=== PATIENT | female | born 1955 | race Caucasian/White ===

== ENCOUNTER 2017-01-02 11:40 | Emergency (ER) | payer OTHER ==
[2017-01-02 11:47] VITALS: BP 154/85
--- NOTE | 2017-01-02 12:18 | XRAY Preliminary Report ---
Exam: XR Foot 3 View RT IMPRESSION: Normal foot radiography. [facility] SITE ID: [id number]
--- NOTE | 2017-01-02 12:20 | XRAY Report ---
EXAM: RIGHT FOOT RADIOGRAPHY EXAM DATE: 01/02/2017 12:10 PM. CLINICAL HISTORY: Injury, pain, swelling. COMPARISON: None. TECHNIQUE: 3 views. FINDINGS: Bones: Normal. No fractures or bone lesions. Joints: Normal. No subluxations. Soft Tissues: Normal. No soft tissue swelling. IMPRESSION: Normal foot radiography. [facility] Referring Provider Line: [phone] SITE ID: [id number]
--- NOTE | 2017-01-02 12:44 | ED Physician Documentation ---
PD HPI LOWER EXT INJURY - Stated complaint Stated Complaint: RT FOOT INJ - Chief complaint Chief Complaint: Ext Problem - History obtained from History obtained from: Patient - History of Present Illness PD HPI LOW EXT INJURY LOCATION: Right, Foot Type of injury: Fall Timing - onset: Today Worsened by: Moving, Palpating, Other (weightbearing) Associated symptoms: No: Weakness, Numbness Similar symptoms before: Has not had sx before - Additional information Additional information: The patient is a 61-year-old female who slipped on a concrete retaining wall just prior to arrival, jamming her right foot into the dirt. She presents now with pain of the right foot, the pain is worse with weightbearing. She is status post right total knee replacement. She denies any other injuries. Review of Systems Nose: denies: Congestion Respiratory: denies: Dyspnea Skin: denies: Rash, Abrasion (s) Musculoskeletal: reports: Extremity pain (right foot). denies: Neck pain, Back pain Neurologic: denies: Focal weakness, Numbness PD PAST MEDICAL HISTORY - Past Medical History Respiratory: None Endocrine/Autoimmune: None - Past Surgical History Ortho: Knee replacement - Present Medications Home Medications: Ambulatory Orders Medication Instructions Recorded Confirmed HYDROcod/ACETAM 5/325 [[place] 5/325] 1 - 2 ea PO Q6H PRN #20 tablet 01/02/17 - Allergies Allergies/Adverse Reactions: Allergies Allergy/AdvReac Type Severity Reaction Status Date / Time NSAIDS (Non-Steroidal Allergy Hives Verified 01/02/17 11:47 Anti-Inflamma - Social History Additional Social History: Visiting here from [place]. PD ED PE NORMAL - Vitals Vital signs reviewed: Yes (mild hypertension) - General General: Alert and oriented X 3, Well developed/nourished - HEENT HEENT: Atraumatic - Neck Neck: No bony TTP - Respiratory Respiratory: No respiratory distress - Back Back: No spinal TTP - Derm Derm: No rash - Extremities Extremities: No edema, No calf tenderness / cord, Other (There is tenderness to palpation over the mid foot, more dorsally than on the plantar aspect. There is minimal swelling, no ecchymosis, and no break in the integument. There is no tenderness to palpation over the medial malleolus or lateral malleolus, or fifth metatarsal base. Distal neurovascular is intact.) - Neuro Neuro: Alert and oriented X 3, No motor deficit, No sensory deficit Results - Vitals Vitals: Oxygen O2 Source Room air - Rads (name of study) Right foot Radiology: Prelim report reviewed, EMP read contemporaneously, See rad report ( Normal right foot radiography.) PD MEDICAL DECISION MAKING - ED course Complexity details: reviewed results, re-evaluated patient, considered differential, d/w patient ED course: The patient's presentation is significant for sprain of the right foot. X-ray reveals no evidence of fracture or dislocation. Treatment in the emergency department included application of a postop shoe, and crutches were dispensed. She is being discharged with prescription for Vicodin, 20 tablets. 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 Departure - Departure Disposition: 01 Home, Self Care Clinical Impression: Sprain of right foot Qualifiers: Encounter type: initial encounter Qualified Code(s): S93.601A - Unspecified sprain of right foot, initial encounter Condition: Stable Instructions: ED Sprain Foot Prescriptions: HYDROcod/ACETAM 5/325 [[place] 5/325] 1 - 2 ea PO Q6H PRN #20 tablet PRN Reason: Pain Comments: Keep your right foot elevated as much the time as possible. Apply icepack to your right foot intermittently for the next 3 days. Use the postop shoe, and crutches as needed to aid with ambulation. You can use ibuprofen, up to 800 mg 3 times daily if needed for pain. You can also use Vicodin as prescribed if needed for pain. Followup with your primary physician within 2 weeks if possible. Call to schedule an appointment. Return to the emergency department if you develop increasing pain, significantly worsening swelling of your foot, or otherwise worsening symptoms. Discharge Date/Time: 01/02/17 13:24
== END 2017-01-02 13:24 | disposition home or self-care (01) ==
LOC: ED 11:40
DX: S93.601A Unspecified sprain of right foot, initial encounter (principal); W01.0XXA Fall on same level from slipping, tripping and stumbling without subsequent striking against object, initial encounter
CPT/HCPCS: 99283

== ENCOUNTER 2022-01-06 15:35 | Outpatient (CLI) | payer MEDICARE | END 2022-01-06 15:36 | disposition short-term general hospital (02) | LOC: EMS 15:35 | DX: S09.90XA Unspecified injury of head, initial encounter (principal); S49.91XA Unspecified injury of right shoulder and upper arm, initial encounter; V18.4XXA Pedal cycle driver injured in noncollision transport accident in traffic accident, initial encounter; Y93.55 Activity, bike riding | CPT/HCPCS: A0425; A0427 ==